=== PATIENT | male | born 1990 | race Asian ===

== ENCOUNTER 2024-12-14 03:26 | Inpatient (IN) ==
[2024-12-14] MEDS ORDERED: VANCOMYCIN CONSULT ACTIVE PRN (03:39)
[2024-12-14] MEDS: KETOROLAC TROMETHAMINE 15 MG/ML VIAL IV STA (03:57)
[2024-12-14] MEDS: SODIUM CHLORIDE 0.9% 1,000 ML IV SCH (03:57)
--- NOTE | 2024-12-14 03:57 | Emergency Department Note ---
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 Patient saw [facility] yesterday as placed on Keflex. Hand is much more swollen and painful and now he has a fever. No direct injury. Tetanus is reported as current. He states he is healthy and only takes a cholesterol pill. No other concerns per patient. No bite. Past Med/Surg History Problem List (Updated 12/14/24 @ 03:57 by Nichole Garber PA-C) Abscess of hand, right (Acute) Cellulitis of right hand (Acute) Social History Smoking Status: Never smoker Feels Safe at Home: Yes Review of Systems A total of 10 systems reviewed and were otherwise negative Physical Exam Vital Signs Vital Signs - 24 hr 12/14/24 03:29 12/14/24 04:09 12/14/24 04:13 Temperature 37.6 C H Temperature Source Temporal Artery Scan Pulse Rate 118 H Pulse Rate [Apical] 109 H Pulse Rhythm [Apical] Regular Pulse Strength [Apical] Normal Respiratory Rate 18 16 Respiratory Effort / Characteristics Non-Labored Spontaneous Non-Labored Spontaneous Respiratory Depth Normal Normal Blood Pressure 141/84 H Blood Pressure [Right Arm] Blood Pressure Mean 103 Blood Pressure Mean [Right Arm] Blood Pressure Position Sitting Pulse Oximetry 98 100 100 Oxygen Delivery Method Room Air Room Air Room Air Sepsis Recent Fever Within 48 Hours No Sepsis New/Unexplained Change in Mental Status N/A Sepsis Action Taken by Nursing No Action Required 12/14/24 04:28 Temperature Temperature Source Pulse Rate Pulse Rate [Apical] 107 H Pulse Rhythm [Apical] Regular Pulse Strength [Apical] Normal Respiratory Rate 18 Respiratory Effort / Characteristics Non-Labored Spontaneous Respiratory Depth Normal Blood Pressure Blood Pressure [Right Arm] 134/95 Blood Pressure Mean Blood Pressure Mean [Right Arm] 108 Blood Pressure Position Pulse Oximetry 99 Oxygen Delivery Method Room Air Sepsis Recent Fever Within 48 Hours Sepsis New/Unexplained Change in Mental Status Sepsis Action Taken by Nursing VITALS: Vitals are noted on the nurse's note and reviewed by myself. Vital signs stable. GENERAL: Pleasant male who appears uncomfortable, in no acute distress, nondiaphoretic, well-developed well-nourished. SKIN: Capillary reflex less than 2 seconds. HEENT: Normocephalic. PERRLA. EOMI. Nares patent. Mucous membranes moist. Neck is supple without nuchal rigidity. HEART: Regular rate and rhythm LUNGS: Clear to auscultation bilaterally without wheezes, rales or rhonchi. No retractions or accessory muscle use. ABDOMEN: Positive bowel sounds x 4. Normal tympanic percussion. Soft, nontender, without masses or organomegaly. Paz sign negative. No guarding or rebound tenderness. no CVA tenderness MUSCULOSKELETAL: No gross musculoskeletal defects. Right hand erythematous and edematous, palmar aspect between the base of the 2nd, 3rd and 4th fingers with palpable abscess, increased pain with extension of all the fingers besides the thumb. Sensation is intact. NEURO: Patient was alert and oriented to person place and time. No focal neurological deficits. Course Administered Medications Sodium Chloride (Nss) 1,000 mls @ 999 mls/hr IV .Q1H1M PRASHANTH Stop: 12/14/24 05:45 Last Admin: 12/14/24 03:57 Dose: 999 mls/hr Documented By: [facility] Discontinued Medications Ceftriaxone Sodium (Rocephin) 2,000 mg in 50 mls @ 100 mls/hr IV NOW STA Stop: 12/14/24 04:08 Last Admin: 12/14/24 03:59 Dose: 100 mls/hr Documented By: [facility] Ketorolac Tromethamine (Ketorolac Tromethamine 15 Mg/Ml Vial) 10 mg IV NOW STA Stop: 12/14/24 03:42 Last Admin: 12/14/24 03:57 Dose: 10 mg Documented By: [facility] Morphine Sulfate (Morphine Sulfate 4 Mg/Ml 1 Ml Carp\Vial) 4 mg IV NOW STA Stop: 12/14/24 04:29 Last Admin: 12/14/24 04:31 Dose: 4 mg Documented By: [facility] Admin: 12/14/24 04:30 Dose: 4 mg Documented By: [facility] Medical Decision Making Medical Records Attestation: I reviewed the patient's medical records. Home Medications Current Medication List: was personally reviewed by me Laboratory Data Attestation: I reviewed the patient's lab results. 12/14/24 03:47 12/14/24 03:47 Lab Results 12/14/24 Range/Units 03:47 WBC 12.46 H (4.8-10.8) K/ul RBC 6.76 H (4.70-6.10) M/uL Hgb 15.7 (14.0-18.0) g/dl Hct 46.9 (42.0-52.0) % MCV 69.4 L (80.0-100.0) fL MCH 23.2 L (25.0-34.0) pg MCHC 33.5 (32.0-36.0) g/dL RDW Std Deviation 33.7 L (36.4-46.3) fL RDW Coeff of Jahaira 15.0 H (11.5-14.5) % Plt Count 164 (130-400) K/uL MPV 10.8 (9.4-12.4) fL ESR 15 (0-15) mm/hr VBG pH 7.45 H (7.36-7.41) VBG pCO2 42 (38-50) mmHg VBG pO2 25 mmHg VBG HCO3 29 mmol/L VBG O2 Saturation < 60.0 % VBG Base Excess 4.7 mEq/L Sodium 136 (136-145) mmol/L Potassium 4.2 (3.5-5.1) mmol/L Chloride 101 (98-107) mmol/L Carbon Dioxide 26 (21-32) mmol/L Anion Gap 9 (3-11) BUN 7 (6-23) mg/dl Creatinine 0.93 (0.6-1.4) mg/dl Est Cr Clr Drug Dosing 102.7 ml/min eGFR 111.19 BUN/Creatinine Ratio 7.5 L (10-20) Glucose 113 H (70-99(Fasting)) mg/dl Lactate 2.0 (0.4-2.0) mmol/L Calcium 10.2 (8.6-10.3) mg/dl Magnesium 2.0 (1.7-2.4) mg/dl Total Bilirubin 0.7 (0.2-1.0) mg/dl Direct Bilirubin 0.0 (0-0.2) mg/dl AST 21 (13-39) U/L ALT 24 (7-52) U/L Alkaline Phosphatase 82 (34-104) U/L Total Creatine Kinase 80 (30-223) U/L C-Reactive Protein 2.45 H (0-0.5) mg/dl Total Protein 8.2 (6.0-8.3) gm/dl Albumin 4.8 (3.4-5.0) gm/dl Imaging Data Attestation: I personally reviewed and interpreted this imaging study as follows: Radiologist's Impression: Hand X-Ray 12/14/24 03:39 EXAM: XR hand RT min 3V routine CLINICAL HISTORY: Infection. TECHNIQUE: X-ray images of the right hand were obtained in PA, lateral, and oblique projections. COMPARISON: No prior studies available for comparison. FINDINGS: Bone Structure: Bone structure is normal and aligned. No evidence of fracture or dislocation. No osseous lesions or abnormalities identified. Joint Spaces: Joint spaces are normal. No evidence of joint effusion or subluxation. Soft Tissues: Diffuse soft tissue edema of the hand and fingers is seen. Additional Findings: No signs of osteoarthritis, bone spurs, lytic or sclerotic lesions. IMPRESSION: 1. Diffuse soft tissue swelling/edema of the right hand and fingers, likely related to infection/cellulitis. 2. No radiographic evidence of osteomyelitis or acute osseous abnormality. 3. Advise clinical correlation and further evaluation as appropriate. Disclaimer: A subtle bone abnormality or fracture may not be readily apparent on X-rays, thus clinical correlation and further imaging including follow-up CT, MRI, or follow-up X-rays are advised as needed. Electronically signed by Shaw Mathias 12-14-2024 04:29 AM MDM Narrative Prior records reviewed and summarized as above. Triage Nursing notes reviewed. Additional history obtained from friend. The patient's history was concerning for swelling and redness of the skin. Differential diagnosis: Etiologies such as cellulitis, abscess, MRSA infection, DVT, necrotizing fasciitis, dermatitis, drug eruption, as well as others were entertained.. Physical examination: As above ER treatment provided: EMERGENCY DEPARTMENT COURSE: I examined the patient. After saline and Betadine cleansing and 2 mL of 1% buffered lidocaine anesthesia, the abscess was incised with a number 11 scalpel blade. A large amount of purulent material was released with more expressed by pressure. A swab was obtained for culture. There was cleansed and dressed with bacitracin and bandage. The area was cleaned with sterile saline and dressed with bacitracin and a bandage. The patient tolerated the procedure well. The patient was discharged home in stable condition. On reassessment the patient felt better. Diagnostics interpreted by me: The labs Independently Interpreted by myself revealed leukocytosis Wound culture pending Blood cultures pending Negative lactic. Glucose 113 Imaging studies: Hand x-ray with soft tissue sore without fracture or foreign body per my independent interpretation Consultation: A consultation was placed with the hospitalist. The case was discussed and diagnostics were reviewed. The patient was evaluated in the ER for further treatment. This appears to be extensive right hand cellulitis with abscess. The abscess was gently opened up in the hand so a culture was taken. Large amount of purulent material was expressed. Patient started on broad-spectrum antibiotics. Medicine was consulted case discussed. Patient will be evaluated for admission. By the evaluation outlined above emergent etiologies such as necrotizing fasciitis, DVT, as well as others were deemed relatively unlikely. The pt informed about the findings as listed above. All questions were answered and pleased with the treatment. The chart was completed utilizing [employer] Speech voice recognition software. Grammatical errors, random word insertions, pronoun errors, and incomplete sentences are an occassional consequence of this system due to software limitations, ambient noise, and hardware issues. Any formal questions or concerns about the content, text, or information contained within the body of this dictation should be directly addressed to the physician financial legal assistant for clarification. Impression & Plan Cellulitis of right hand, Abscess of hand, right Discharge Plan Visit Data Chief Complaint: Fever Stated Complaint: PAIN AND CELLULITIS,FEVER ED Provider: [facility] Midlevel Provider: Nichole Garber Discharge Problem: Cellulitis of right hand, Abscess of hand, right Patient Disposition: Admitted As Inpatient Condition: Good Forms Stand Alone Forms: [facility] Referrals Referrals: PCP,NO [Primary Care Provider] -
[2024-12-14] MEDS: cefTRIAXone SODIUM 2,000 MG/50 ML BAG IV STA (03:59)
[2024-12-14 04:07] LABS: Hematocrit (blood only) 46.9 % (42.0-52.0); Hemoglobin 15.7 g/dl (14.0-18.0); Mean Corpuscular Hemoglobin 23.2 pg (25.0-34.0); Mean Corpuscular Volume 69.4 fL (80.0-100.0); RDW Standard Deviation 33.7 fL (36.4-46.3); Red Blood Count 6.76 M/uL (4.70-6.10); White Blood Count 12.46 K/ul (4.8-10.8)
[2024-12-14 04:08] LABS: Base Excess VBG 4.7 mEq/L; HCO3 VBG 29 mmol/L; Oxygen Saturation VBG < 60.0 %; PCO2 VBG 42 mmHg (38-50); PO2 VBG 25 mmHg; pH VBG 7.45 (7.36-7.41)
[2024-12-14 04:10] LABS: Platelet Count 164 K/uL (130-400)
--- NOTE | 2024-12-14 04:14 | History & Physical Report ---
Date of Service December 14, 2024 Assessment & Plan (1) Cellulitis of right hand: (2) Abscess of hand, right: (3) Systemic inflammatory response syndrome (SIRS): (4) Hypertriglyceridemia: Plan #right hand cellulitis/ - increased erythema/edema/skin induration of anterior r. palm (close the 3rd, 4th MCP joints) - pus drained from hand by ER doctor - Wound Cx pending, MRSA nares pending - Ceftriaxone, 2 g, IV, given in ER; Vancomycin given in ER - NSS, bolus, 2L, given in ER - consult to Ortho placed - TDaP ordered (last one in 2018; daughter of 9 months has received the 2,4,6 month DTaP vaccines) #SIRS criteria - pt meets SIRS criteria due to tachycardia (HR, 118), leukocytosis (WBC, 12.5) upon admission, possibly fever outside the hospital (patient had take Tylenol and ibuprofen before coming to the ED) - Blood Cx pending Chronic conditions #Hypertriglyceridemia - atorvastatin, 10 mg, PO, daily Code status: Full code Disposition: Med-Tele VTE Prophylaxis: self-ambulation FENGI: Heart [employer] diet, NSS, 80 mL/hr, 2 additional L History of Present Illness Chief Complaint: pain, swelling, redness of r. hand Primary Care Provider: NO PCP Patient is a 34 yo M w/ a PMHx of hypertriglyceridemia, presenting tonight w/ 9 day Hx of r. hand pain, that just started out as a red spot, but from this Tuesday the area of erythema started to spread, along w/ increased pain and swelling. Patient has felt feverish since yesterday morning, took his temp at midnight for the first time tonight and noted a temp of 101deg F. Patient had gone to [facility] two and a half days ago in the afternoon, but was only treated for the pain and instructed to take NSAIDs to control the pain. 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 Is unsure how the injury started. Patient has only taken ibuprofen, Tylenol, up until now for the pain. Allergies Allergy/AdvReac Type Severity Reaction Status Date / Time No Known Allergies Allergy Verified 12/14/24 04:58 Home Medications Medication Instructions Recorded Confirmed Type atorvastatin 10 mg tablet 10 mg PO 1XD 12/14/24 12/14/24 History Past Med/Surg History Problem List (Updated 12/14/24 @ 05:49 by Austin Loyola MD) Hypertriglyceridemia Systemic inflammatory response syndrome (SIRS) Abscess of hand, right (Acute) Cellulitis of right hand (Acute) Social History Smoking Status: Never smoker Hx Alcohol Use: Yes Hx Substance Use: No Preferred Language: Kazakh Communication Ability: Effective Medical Dosimetrist Required: No Beliefs That Will Affect Care: None Current Living Situation: Family Feels Safe at Home: Yes Assistive Devices: Glasses Review of Systems Constitutional: + fever and + chills; no sweats Respiratory: no cough and no dyspnea Cardiovascular: no palpitations and no lightheadedness Gastrointestinal: + nausea; no abdominal pain and no vomit ing Integumentary: + erythema and + skin swelling Physical Exam Constitutional: + ill appearing, cooperative and + in di stress Respiratory: normal respiratory effort, lungs clear to auscultation Cardiovascular: RRR, no murmur, no edema Extremities: normal capillary refill; no calf tenderness Gastrointestinal (Abdomen): normal bowel sounds, soft, nontender, no hepatosplenomegaly Skin: + induration and + erythema Psychiatric: A+Ox3, euthymic affect Results & Data Results & Data Vital Signs (Past 12 Hours) Vital Signs Temp Pulse Resp BP Pulse Ox O2 Del Method 12/14/24 03:29 37.6 C H 118 H 18 141/84 H 98 Room Air Supervising Physician Co-Signing Physician Notes Attending addendum: I have physically seen this patient, have supervised the medical residents activities, and agree with the H&P unless as otherwise noted. 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 He presents to the emergency department with worsening right hand swelling, redness and discomfort, initially began about 9 days ago. He presented to [facility] ED due to worsening symptoms. Right hand cellulitis/abscess- He did have drainage performed by ED personnel, and wound Gram stain and culture pending MRSA is pending Placed on vancomycin IV and ceftriaxone 2 g IV, and will continue Status post 2 L normal saline bolus from the ED Consult orthopedic surgery placed Tdap ordered Patient does meet SIRS criteria to increase heart rate and leukocytosis Acetaminophen 600 mg by mouth every 6 hours as needed for mild pain or fever Ibuprofen 40 mg p.o. every 6 hours as needed moderate pain Hypertriglyceridemia- Continue atorvastatin 10 mg daily
[2024-12-14 04:27] LABS: Alanine Aminotransferase 24.0 U/L (7-52); Alkaline Phosphatase 82.0 U/L (34-104); Anion Gap 9.0 (3-11); Bilirubin,Total 0.7 mg/dl (0.2-1.0); Blood Urea Nitrogen 7.0 mg/dl (6-23); Calcium 10.2 mg/dl (8.6-10.3); Carbon Dioxide 26.0 mmol/L (21-32); Chloride 101.0 mmol/L (98-107); Creatine Kinase 80.0 U/L (30-223); Creatinine Clr Calc Pharmacy 102.7 ml/min; Glucose 113.0 mg/dl (70-99(Fasting)); Magnesium 2.0 mg/dl (1.7-2.4); Potassium 4.2 mmol/L (3.5-5.1); Sodium 136.0 mmol/L (136-145); Total Protein 8.2 gm/dl (6.0-8.3)
--- NOTE | 2024-12-14 04:29 | XRay Report ---
EXAM: XR hand RT min 3V routine CLINICAL HISTORY: Infection. TECHNIQUE: X-ray images of the right hand were obtained in PA, lateral, and oblique projections. COMPARISON: No prior studies available for comparison. FINDINGS: Bone Structure: Bone structure is normal and aligned. No evidence of fracture or dislocation. No osseous lesions or abnormalities identified. Joint Spaces: Joint spaces are normal. No evidence of joint effusion or subluxation. Soft Tissues: Diffuse soft tissue edema of the hand and fingers is seen. Additional Findings: No signs of osteoarthritis, bone spurs, lytic or sclerotic lesions. IMPRESSION: 1. Diffuse soft tissue swelling/edema of the right hand and fingers, likely related to infection/cellulitis. 2. No radiographic evidence of osteomyelitis or acute osseous abnormality. 3. Advise clinical correlation and further evaluation as appropriate. Disclaimer: A subtle bone abnormality or fracture may not be readily apparent on X-rays, thus clinical correlation and further imaging including follow-up CT, MRI, or follow-up X-rays are advised as needed. Electronically signed by Shaw Mathias 12-14-2024 04:29 AM
[2024-12-14] MEDS: MoRPHine SULFATE 4 MG/ML 1 ML CARP\\VIAL IV STA (04:30)
[2024-12-14 04:35] LABS: Immature Granulocytes # (auto) 0.05 K/uL (0.01-0.20); Immature Granulocytes % (auto) 0.4 %; Polychromasia 1+; Stomatocytes 1+; Target Cells 1+
[2024-12-14] MEDS: ONDANSETRON INJ 2 MG/ML 2 ML VIAL IV STA (04:37)
[2024-12-14] MEDS: MoRPHine SULFATE 2 MG/ML CARP IV STA (04:45)
[2024-12-14] MEDS ORDERED: SODIUM CHLORIDE 0.9% 1,000 ML IV ONE (04:46)
[2024-12-14] MEDS: VANCOMYCIN HCL 1,250 MG in SODIUM CHLORIDE 0.9% 500 ML IV ONE (04:54)
[2024-12-14] MEDS ORDERED: ONDANSETRON INJ 2 MG/ML 2 ML VIAL IV PRN ×2 (04:54→14:14)
[2024-12-14] MEDS: DIPHTHER/TETAN/PERTUS Vaccine (Tdap, Adol/Adult) 0.5mL IM ONE (06:24)
[2024-12-14] MEDS: MoRPHine SULFATE 4 MG/ML 1 ML CARP\\VIAL IV PRN (08:03)
[2024-12-14] MEDS: ACETAMINOPHEN 500 MG TAB PO PRN (09:23)
--- NOTE | 2024-12-14 09:26 | Pharmacy Report ---
Pharmacy PK ABX Note - Date of Service December 14, 2024 - Assessment and Plan Assessment 34 year old M who presented with concerns of worsening erythema, pain and swelling of R hand. 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 Blood culture and wound culture pending. Empiric vancomycin ordered for treatment of R hand purulent cellulitis, concern for abscess. Plan Vancomycin * Loading dose: 1200 mg IV x 1 * Maintenance dose: 1250 mg IV every 12 hours * Regimen is predicted to achieve target AUC/KAREN of 400-600 mg/L.hr * est. steady state AUC/KAREN = 529 * Random level ordered for: 12/16 with AM labs Pharmacy will continue to follow and will adjust dose/frequency as necessary. Thank you. Pharmacy has transitioned to AUC monitoring for vancomycin. AUC/KAREN is the preferred PK/PD target and is associated with decreased risk of nephrotoxicity compared to traditional trough targets.
[2024-12-14] MEDS: LACTATED RINGER'S 1,000 ML IV ONE (10:13)
[2024-12-14] MEDS: ATORVASTATIN 10 MG TAB PO SCH (10:22)
[2024-12-14] MEDS: PIPERACILLIN/TAZOBACTAM 4.5 GM/100 ML BAG IV STA (10:32)
--- NOTE | 2024-12-14 10:36 | Hospitalist Progress Note ---
Date of Service December 14, 2024 Assessment & Plan (1) Cellulitis of right hand: (2) Abscess of hand, right: Plan: Purulent cellulitis, possible tenosynovitis of the right hand 9 days of progressive swelling, erythema of the right palm near the proximal aspect of the 3rd/4th digits Greatly worsening over the last 4 days, and with development of fevers chills and suspected rigors over the last 24 hours Lactate normal on admission, CRP elevated, procalcitonin negative Hand x-ray: Diffuse soft tissue swelling/edema seen. No obvious evidence of osteomyelitis Seen on morning reassessment 12/14. Has had progressive tachycardia, ongoing chills and fever, and rising sinus tachycardia to 140. No associated hypoxia or dyspnea with this Passive extension of the right 3rd/4th digits is with restricted range of motion due to pain which radiates to the wrist, although does not travel into the forearm. He has some pain on active flexion of the 3rd/4th digits, but less pain compared to on extension. Diffuse tenderness overlying swollen/erythematous area. Photo was attached in PE section. Scant amount of purulence underlying the skin is seen, serous drainage is present Small skin defect is seen, patient reports he does not recall an injury at the start of the development of this abscess however noticed that he had drainage from this area in the last day or so Due to worsening clinical appearance, and wound progressively worsening for 9- day time course will broaden antibiotics. Zosyn added for gram-negative and anaerobic coverage. Will reassess based on progression for prolonged Zosyn use and transition Vanco to Dapto versus narrowing antibiotics based on cultures over the next 24 hours Blood cultures pending, no growth to date MRSA positive with abscess CThand with contrast shows a small3 cm developing abscess. Follow-up MRI shows subcutaneous edema dorsally base of fourth extensor compartment possibly consistent with tenosynovitis. Ill-defined fluid suggestive of abscess as noted on CT. Orthopedics consulted. Anticipate irrigation debridement of the right hand abscess and middle and ring finger tendon sheaths. Appreciate care. Keep n.p.o. Follow surgical cultures when available Hypertriglyceridemia Patient on atorvastatin [employer]. Temporarily held in case daptomycin is required Will need referral to PCP when ready for discharge. Patient prefers to follow- up with [facility] primary care office. DVT prophylaxis: Held pending surgical evaluation Diet: N.p.o. CODE STATUS: Full code Admission and Anticipated Discharge Date Admission Date: December 14, 2024 Subjective Seen at the bedside. Reports 90 days ago began to have swelling and pain in his right palm. This has been progressively worsening in the last 5 days, and developed fevers and chills which brought him in in the last 2 days. He does have pain trying to extend or flex his fingers. He does not recall any injury when this started but has had some drainage from an area by his middle finger in the last day. He has had fevers and chills in the last day, and this morning. He denies lightheadedness/dizziness. Denies chest pain. Denies numbness in the hand, but strength and movement is limited by pain. Prior history of hypertriglyceridemia on atorvastatin. Denies other medical problems. Denies other allergies, denies contrast allergy. 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 Prefers not any follow-up to [facility]. Physical Exam 2 Physical Exam: General: A&Ox3. NAD. Cooperative. HEENT: Atraumatic, normocephalic. Hearing grossly intact Pulm: CTAB A&P. -wheezes, -rales, -rhonchi. Symmetrical chest rise. No increase in work of breathing. No respiratory distress. Cardiac: Tachycardic, -mrg. Radial pulses intact and symmetrical. Extremities: Right hand as pictured above. On exam passive extension of the 3rd and 4th digits produces pain radiating into the wrist, more prominent with extension of the fourth digit. Some minimal pain on active finger flexion. Cap refill in the fingertips is brisk. No pain radiating into the forearm. Radial pulse is intact. Results & Data Results & Data Vital Signs (Past 12 Hours) Vital Signs Temp Pulse Pulse Resp BP BP Pulse Ox 12/14/24 09:27 140 H 27 H 116/62 97 12/14/24 08:42 37.8 C H 12/14/24 08:04 140 H 16 113/72 97 12/14/24 07:42 133 H 12/14/24 06:21 135 H 18 129/76 100 12/14/24 06:21 135 H 16 99 12/14/24 04:28 107 H 18 134/95 99 12/14/24 04:13 109 H 16 100 08/29/25 04:09 100 12/14/24 03:52 109 H 12/14/24 03:29 37.6 C H 118 H 18 141/84 H 98 O2 Del Method 12/14/24 09:27 Room Air 12/14/24 08:42 12/14/24 08:04 Room Air 12/14/24 07:42 12/14/24 06:21 Room Air 12/14/24 06:21 Room Air 12/14/24 04:28 Room Air 12/14/24 04:13 Room Air 12/14/24 04:09 Room Air 12/14/24 03:52 12/14/24 03:29 Room Air PG Care Time/CCT Total # of Minutes Spent Total Time Spent with Patient: Total time spent is greater than 50% in coordination of care (as documented) at patient's floor/unit and/or counseling patient: Coding Level of Care Code 21683 SUB INP/OBS CARE 3/50MIN Diagnoses Cellulitis of right hand L03.113 Abscess of hand, right L02.511
--- NOTE | 2024-12-14 11:11 | Orthopedic Consultation ---
Date of Consultation December 14, 2024 Assessment & Plan (1) Abscess of hand, right: (2) Cellulitis of right hand: (3) Systemic inflammatory response syndrome (SIRS): (4) Hypertriglyceridemia: Plan 34-year-old gentleman presents to the emergency department last evening for a ri ght hand infection. Patient has been dealing with this for the last 9 or 10 days. He has significant pain and swelling and erythema located near the middle and ring digits of his right hand. On my evaluation this morning, the patient notes that he did have a drainage done in the evening with return of purulent material. On my evaluation of the patient's imaging studies, the CT scan does show concern of an abscess that is centered over the middle digit that extends ulnarly near the fourth digit as well. The concern for me at this point is whether or not this infection has spread into the flexor tendon sheaths. Clinically, the patient does have swelling in this area but his digits are not with fusiform swelling. He has tenderness over his proximal phalanx and flexor tendons on both digits, however he does not have tenderness over the entire flexor sheath. We did discuss this with my hand surgery colleague who noted that an MRI would be quite helpful into finding the location of the abscess. The concern is whether or not this extends dorsally. On the CT scan evaluation I do not appreciate this, however an MRI of the hand done stat should be able to help delineate this as well. As of now, I do believe the patient requires irrigation and debridement this will be of the palmar superficial abscess and out of an abundance of caution and considering it has been a week and a half since this first developed, I do think that irrigation and debridement of the flexor tendon sheaths is also appropriate.. I do long discussion with patient regarding the nature of this condition. Discussed in great detail the pathoanatomy, pathophysiology and treatment options. I did discuss with him that the alternative to surgery would be for IV antibiotics and close observation, however my recommendation is for irrigation and debridement surgically in order to ensure the best chance source control. I discussed with the patient the risks of surgery which include but are not limited to loss of life/limb, DVT, incomplete relief of pain, need for additional surgery, continued infection, iatrogenic injury to bone/nerve/tendon/vessel, need for skin grafting in the future, finger stiff ness. I expressed to him the alternative of close observation with IV antibiotics carries with it a higher risk of inadequate source control requiring surgery in the future. After thorough discussion the risk, benefits and alternatives to surgical management, we will plan for irrigation and debridement of right hand abscess and middle and ring flexor tendon sheaths. Please keep the patient NPO. Will proceed to the operating room pending or availability. We will obtain cultures in the operating room to help guide antibiotic treatment, however I did explain to the patient that these cultures may be incomplete or grow nothing considering he has already been on IV antibiotics. Surgical plan: Irrigation debridement right hand abscess and middle and ring flexor tendon sheaths. History of Present Illness Reason for Consultation: right hand cellulitis Requesting Physician: Dr Bright and Dr Styles Attending Physician: Minh Bright MD History of Present Illness Patient is a 34 yo M w/ a PMHx of hypertriglyceridemia, who presented last evening with a 9 day history of right hand pain. He notes that the pain started out as a red spot, but this past Tuesday, the area of erythema started to spread and at that time he also noted increased pain and swelling. Patient has felt feverish since yesterday morning, took his temp at midnight last night for the first time and noted a temp of 101 F. Patient had reportedly presented to [facility] two ago, and notes that he was told to take some antiinflammatories for the issue. Patient works in a [employer] and had not done anything he knows to cause trauma to the hand. Is unsure how the injury started. Patient has been treating the pain with tylenol and NSAIDs. He was admitted to the hospitalist service last evening and when he was seen this moring, was noted to have progressive tachycardia, ongoing chills and fever, and rising tachycardia to 140. Per the hospitalist, passive extension of the right 3rd/4th digits is with restricted range of motion due to pain. At that time the hospitalist contacted [facility] service who noted that they should call the operations/dispatch surgeon. On my evaluation in the ER, the patients antibiotic coverage has been expanded. Allergies Allergy/AdvReac Type Severity Reaction Status Date / Time No Known Allergies Allergy Verified 12/14/24 04:58 Home Medications Medication Instructions Recorded Confirmed Type atorvastatin 10 mg tablet 10 mg PO 1XD 12/14/24 12/14/24 History Patient History Social History Smoking Status: Never smoker Feels Safe at Home: Yes Review of Systems Review of Systems: All systems reviewed & are unremarkable except as noted in HPI & below Physical Exam Physical Exam: On physical examination, the patient has some erythema noted about his palmar hand centered around the 3rd and 4th digits. This does appear to be centered at the level of the MP joints. He has tenderness to palpation in this area. There is some mild serous drainage from what appears to be a prior stab incision for ER drainage of this cyst. Diffusely, his hand is somewhat swollen with some swelling noted dorsally. There is no area of purulence noted dorsally and no significant erythema there either. With passive extension of the patient's digits he has pain in the middle and ring digits. No pain with passive extension of the index, small, or thumb. He has mild swelling of the 3rd and 4th digits noted but this is not fusiform of the entire digit. His hand rests in a slightly flexed posture. He is tender over the area of concern, but he is nontender over the flexor tendons within the rest of his finger. Results & Data Vital Signs (Past 12 Hours) Vital Signs Temp Pulse Pulse Resp BP BP Pulse Ox 12/14/24 09:27 140 H 27 H 116/62 97 12/14/24 08:42 37.8 C H 12/14/24 08:04 140 H 16 113/72 97 12/14/24 07:42 133 H 12/14/24 06:21 135 H 18 129/76 100 12/14/24 06:21 135 H 16 99 12/14/24 04:28 107 H 18 134/95 99 12/14/24 04:13 109 H 16 100 12/14/24 04:09 100 12/14/24 03:52 109 H 12/14/24 03:29 37.6 C H 118 H 18 141/84 H 98 O2 Del Method 12/14/24 09:27 Room Air 12/14/24 08:42 12/14/24 08:04 Room Air 12/14/24 07:42 12/14/24 06:21 Room Air 12/14/24 06:21 Room Air 12/14/24 04:28 Room Air 12/14/24 04:13 Room Air 12/14/24 04:09 Room Air 12/14/24 03:52 12/14/24 03:29 Room Air Diagnostic Findings XRs and CT of the hand personally reviewed and interpreted. These demonstrate no acute osseous abnormalities. In the palmar hand, there does appear to be a small abscess located in the space between the middle and ring digits just distal to the MP joint.
[2024-12-14] MEDS: OPTIRAY 320 100ml IV ONE (11:18)
--- NOTE | 2024-12-14 12:06 | CT Scan Report ---
CT hand RT w con HISTORY: 34 years-old Male R hand infection, initial eval for osteo/tenosyno acute pain and swelling of the right hand COMPARISON: Radiographs of same day TECHNIQUE: Multiple axial CT images of the right hand were obtained with IV contrast. A dose lowering technique was used consistent with the principals of SHERRON. FINDINGS: Ill-defined peripherally enhancing 3.1 x 0.9 x 1.4 collection noted within the palmar tissues of the hand at the level of the bases of the proximal phalanges involving the second through fourth digits. No definite tenosynovitis or foreign body. Plantar and volar subcutaneous edema is mild to moderate. No acute fracture, dislocation or osseous erosion. Tendons and ligaments are suboptimally evaluated b y CT technique. IMPRESSION: 1. No acute osseous abnormality. 2. Suggested cellulitis with developing 3 cm abscess. ACT 112: Negative or not required by law. The above report was generated using voice recognition software. It may contain grammatical, syntax o r spelling errors. Electronically signed by: Yinka Phillips M.D. 12/14/2024 12:04 PM
[2024-12-14] MEDS: VANCOMYCIN HCL 1,250 MG in SODIUM CHLORIDE 0.9% 250 ML IV SCH (12:20)
--- NOTE | 2024-12-14 12:51 | Anesthesiology Consultation ---
Date of Service December 14, 2024 Assessment & Plan Chart Review Chart Review: Acceptable Risk for Surgery and Patient NOT seen in Pre Admission Testing Consults Requested none History Surgery Operation Date: 12/14/24 08:40 Proposed Procedures p Incision and Drainage Right Hand - Juan Ochoa DO Height/Weight Height: 5 ft 7 in Weight: 64.3 kg Allergies Allergy/AdvReac Type Severity Reaction Status Date / Time No Known Allergies Allergy Verified 12/14/24 04:58 Medications Home Medications Medication Instructions Recorded Confirmed Last Taken atorvastatin 10 mg tablet 10 mg PO 1XD 12/14/24 12/14/24 Unknown Active Medications Generic Name Dose Route Start Last Admin Trade Name Freq PRN Reason Stop Dose Admin Acetaminophen 1,000 mg 12/14/24 04:54 12/14/24 09:23 Acetaminophen 500 Mg Tab PO 01/13/25 04:53 1,000 mg Q8H PRN Administration Pain or Fever Atorvastatin Calcium 10 mg 12/14/24 09:00 12/14/24 10:22 Atorvastatin 10 Mg Tab PO 01/13/25 08:59 Not Given DAILY PRASHANTH Vancomycin HCl 1,250 mg/ 275 mls @ 200 mls/hr 12/14/24 12:00 12/14/24 12:20 Sodium Chloride IV 12/21/24 11:59 200 mls/hr Q12H PRASHANTH Administration Morphine Sulfate 4 mg 12/14/24 04:54 12/14/24 08:03 Morphine Sulfate 4 Mg/Ml 1 Ml Carp\Vial IV 12/28/24 04:53 4 mg Q3H PRN Administration Severe Pain (Scale 7, 8, 9,10) Social History Smoking Status: Never smoker Physical Exam Vital Signs Last Vital Signs Temp 37.6 C H 12/14/24 11:38 Pulse 99 H 12/14/24 12:38 Resp 20 12/14/24 12:38 BP 110/67 12/14/24 12:38 Pulse Ox 98 12/14/24 12:38 O2 Del Method Room Air 12/14/24 09:27 Testing Laboratory Results 12/14/24 03:47 12/14/24 03:47 12/14/24 03:47 Gram Stain - Final Hand
[2024-12-14] MEDS ORDERED: LIDOCAINE 2% 2 ML VIAL/AMP(20MG/ML) INFIL ONE ×2 (13:01)
[2024-12-14] MEDS ORDERED: MIDAZOLAM HCL 1 MG/ML 2ML VIAL ONE (13:01)
[2024-12-14] MEDS ORDERED: PROPOFOL IV EMULSION 10 MG/ML 20 ML VIAL IV ONE (13:01)
--- NOTE | 2024-12-14 13:51 | History & Physical Bridge Note ---
Date of Service December 14, 2024 History & Physical Bridge Note I have examined the patient, reviewed the History & Physical and in the interval since the performance of the History & Physical I have noted the following changes of clinical significance: MRI personally reviewed, demonstrates palmar abscess without extension dorsally. there is dosal soft tissue cellulitis I had a long discussion with patient regarding the nature of this condition. Discussed in great detail the pathoanatomy, pathophysiology and treatment options. I did discuss with him that the alternative to surgery would be for IV antibiotics and close observation, however my recommendation is for irrigation and debridement surgically in order to ensure the best chance source control. I discussed with the patient the risks of surgery which include but are not limited to loss of life/limb, DVT, incomplete relief of pain, need for additional surgery, continued infection, iatrogenic injury to bone/nerve/tendon/vessel, need for skin grafting in the future, finger stiffness. I expressed to him the alternative of close observation with IV antibiotics carries with it a higher risk of inadequate source control requiring surgery in the future. After thorough discussion the risk, benefits and alternatives to surgical management, we will plan for irrigation and debridement of right hand abscess and middle and ring flexor tendon sheaths. Surgical plan remains the same following MRI: Irrigation and debridement of right hand abscess and middle and ring finger flexor tendon sheaths with all other indicated procedures.
[2024-12-14] MEDS ORDERED: ROCURONIUM BROMIDE 10 MG/ML 5 ML VIAL IV ONE (14:05)
[2024-12-14] MEDS ORDERED: SUCCINYLCHOLINE CHLORIDE 20 MG/ML 10 ML VIAL IV ONE (14:06)
[2024-12-14] MEDS ORDERED: ATROPINE SULFATE 0.1 MG/ML 10ML SYR IV PRN (14:14)
[2024-12-14] MEDS ORDERED: ARTIFICIAL TEARS OP OINT 3.5 GM TUBE ONE (14:17)
--- NOTE | 2024-12-14 14:26 | Magnetic Resonance Report ---
MR hand RT wo con HISTORY: 34 years-old Male hand infection acute pain and swelling COMPARISON: CT right hand of same day TECHNIQUE: Multiplanar multisequence MRI of the right hand was obtained without IV contrast. FINDINGS: Previously described ill-defined peripherally enhancing 3.1 x 0.9 x 1.4 collection within the palmar tissues of the hand at the level of the bases of the proximal phalanges involving the second through fourth digits is again noted. Palmar and volar subcutaneous edema redemonstrated which is moderate do rsally and also moderate the pulmonary tissues surrounding the aforementioned ill-defined collection. Fluid extends around the fourth extensor compartment tendons. No definite flexor tenosynovitis. No a cute tendon or ligamentous tear identified. No acute fracture, significant marrow edema, dislocation or osseous erosion. Tendons and ligaments ar e suboptimally evaluated by CT technique. IMPRESSION: 1. No acute osseous abnormality, specifically no bony erosions or marrow edema. 2. Subcutaneous edema is most pronounced dorsally facing the fourth extensor compartment tendons whic h may represent an associated tenosynovitis. 3. Ill-defined fluid along the palmar hand is better evaluated on the contrast-enhanced CT study of suggestive of phlegmon/developing abscess. ACT 112: Negative or not required by law. The above report was generated using voice recognition software. It may contain grammatical, syntax o r spelling errors. Electronically signed by: Yinka Phillips M.D. 12/14/2024 2:25 PM
[2024-12-14] MEDS ORDERED: ONDANSETRON INJ 2 MG/ML 2 ML VIAL ONE (14:31)
[2024-12-14] MEDS ORDERED: DEXAMETHASONE SOD INJ 4 MG/ML VIAL ONE (14:31)
[2024-12-14] MEDS ORDERED: KETAMINE HCL 10MG/ML SYR ONE (14:37)
[2024-12-14] MEDS ORDERED: HYDROmorphone INJ 1 MG/ML SYRINGE ONE (14:39)
[2024-12-14] MEDS: VANCOMYCIN HCL 1000MG/20ML VIAL ONE (14:53)
[2024-12-14] MEDS ORDERED: SUGAMMADEX SODIUM 200 MG/2 ML VIAL IV ONE (14:55)
[2024-12-14] MEDS ORDERED: PHENYLEPHRINE 100MCG/ML 5ML SYR ONE (14:56)
[2024-12-14] MEDS ORDERED: KETOROLAC 30 MG/ML VIAL ONE (15:02)
--- NOTE | 2024-12-14 15:36 | Operative Report ---
Post Operative Report Pre & Post Diagnosis Operation Date: 12/14/24 08:40 <No data on this case meets the specified criteria> Preoperative diagnoses: 1. Right hand abscess 2. Evolving flexor tenosynovitis right middle digit 3. Evolving flexor tenosynovitis right ring digit Postoperative diagnosis: 1. Right hand abscess 2. Evolving flexor tenosynovitis right middle digit 3. Evolving flexor tenosynovitis right ring digit I identified the patient and participated in the time-out.: Yes Procedure Operation Date: 12/14/24 08:40 <No data on this case meets the specified criteria> 1. Irrigation and debridement right hand abscess 2. Irrigation and debridement right middle finger flexor tenosynovitis 3. Irrigation debridement right ring finger flexor tenosynovitis Surgeon Juan Ochoa, DO Doper Operator none Estimated Blood Loss 10 Findings Consistent with Post-Op Diagnosis Specimens 1 swab for culture of abscess Complications none immediately apparent Indications 34-year-old gentleman presents to the emergency department last evening for a right hand infection. Patient has been dealing with this for the last 9 or 10 days. He has significant pain and swelling and erythema located near the middle and ring digits of his right hand. On my evaluation this morning, the patient notes that he did have a drainage done in the evening with return of purulent material. On my evaluation of the patient's imaging studies, the CT scan does show concern of an abscess that is centered over the middle digit that extends ulnarly near the fourth digit as well. The concern for me at this point is whether or not this infection has spread into the flexor tendon sheaths. Clinically, the patient does have swelling in this area but his digits are not with fusiform swelling. He has tenderness over his proximal phalanx and flexor tendons on both digits, however he does not have tenderness over the entire flexor sheath. We did discuss this with my hand surgery colleague who noted that an MRI would be quite helpful into finding the location of the abscess. The concern is whether or not this extends dorsally. On the CT scan evaluation I do not appreciate this, however an MRI of the hand done stat should be able to help delineate this as well. As of now, I do believe the patient requires irrigation and debridement this will be of the palmar superficial abscess and out of an abundance of caution and considering it has been a week and a half since this first developed, I do think that irrigation and debridement of the flexor tendon sheaths is also appropriate.. I do long discussion with patient regarding the nature of this condition. Discussed in great detail the pathoanatomy, pathophysiology and treatment options. I did discuss with him that the alternative to surgery would be for IV antibiotics and close observation, however my recommendation is for irrigation and debridement surgically in order to ensure the best chance source control. I discussed with the patient the risks of surgery which include but are not limited to loss of life/limb, DVT, incomplete relief of pain, need for additional surgery, continued infection, iatrogenic injury to bone/nerve/tendon/vessel, need for skin grafting in the future, finger stiffness. I expressed to him the alternative of close observation with IV an tibiotics carries with it a higher risk of inadequate source control requiring surgery in the future. After thorough discussion the risk, benefits and alternatives to surgical management, we will plan for irrigation and debridement of right hand abscess and middle and ring flexor tendon sheaths. Please keep the patient NPO. Will proceed to the operating room pending or availability. We will obtain cultures in the operating room to help guide antibiotic treatment, however I did explain to the patient that these cultures may be incomplete or grow nothing considering he has already been on IV antibiotics. Surgical plan: Irrigation debridement right hand abscess and middle and ring flexor tendon sheaths. patient did have his MRI prior to surgery which demonstrated dorsal soft tissue cellulitis without discrete abscess. Noted was the abscess in the palmar soft tissues. Description of Procedure After informed consent was obtained, the patient was correctly identified in the preoperative holding suite, the operative site was marked with the surgeon's initials, the date of surgery, and the word yes. The patient was then taken to the operative suite. The department of anesthesia administered General Anesthetic. The patient was transferred from the [facility] to the operative table. All bony prominences were well-padded. Briefing and timeout was performed. All implants were available and sterile at the time. BRIEFING AND DEBRIEFING: Pre and post operative briefing and debriefing was performed. Introductions were made, goals of the procedure were discussed, questions and concerns were addressed. The operative site markings were identified and appropriate. A time [id number] was performed, the patient's correct identity was confirmed and the correct operative sites were identified. The patients pre-operative antibiotic dosing and administration was confirmed along with other SCIP measures. The team was polled at the completion of the surgery and all team members were in agreement that the procedure was without complication, the counts are correct, the wound class was identified and suggestions for improvement were shared. patient was transferred in supine fashion from the hospital bed to the operative table. All bony prominences well-padded. A well-padded tourniquet was placed high on the right arm and SCDs were placed on bilateral lower extremities. Left upper extremity was placed on a well-padded arm board. We prepped and draped the patient's right upper extremity using Betadine scrub and paint. The tourniquet was inflated without exsanguination and we began the surgical procedure. We started with longitudinal incisions over the middle finger and ring finger A1 pulleys. The planned incision for the irrigation debridement of the flexor tendon sheath was directly over the center of the abscess and through the middle finger incision we first encountered the large abscess. Cultures were then taken and sent to the lab. At this point, we explored using hemostats underneath the skin bridge in order to express all aspects of the abscess. We then began sharp debridement of nonviable tissue within the abscess using tenotomy scissors. This was done down to the level of the tendon sheath. Once you are satisfied with our debridement, we began thorough irrigation using 3 L of sterile saline mixed with vancomycin powder via cystoscopy tubing. We would save 200 cc of this 3 L bag to use for the flexor tendon sheaths. Next, we turned our attention towards the middle and ring finger flexor tendon sheaths. Given the proximity to the A1 philip of the abscess for both digits, we felt it was necessary to proceed with irrigation debridement of the sheath for suspected evolving flexor tenosynovitis. we started with the middle finger. Prior to irrigating through our previously made incisions we would make a counterincision distally using a mini Marcela type incision over the A5 philip at the flexion crease of the DIP joint. We dissected bluntly down to the level of the philip and made a small suraj within the philip to allow for egress of fluid. We then turned our attention back proximally. We would retract the soft tissues including the neurovascular bundles out of the way of the A1 philip And once we fully saw the philip we would introduce a 14-gauge Angiocath into the flexor sheath. Through this Angiocath we would irrigate with 100 cc of sterile saline through the flexor sheath watching the egress of fluid distally. Next, we turned our attention towards the ring finger. We would again turned our attention distally make a small Marcela incision over the A5 philip at the flexion crease of the DIP joint. We dissected bluntly down to the level of the philip, made a small suraj in it in order to allow egress of fluid. We turned our attention back proximally and after retracting soft tissues out of the way we would incise the A1 philip longitudinally. We introduced the 14-gauge Angiocath into the flexor tendon sheath and through this we irrigated with 100 cc of sterile saline watching egress of the fluid distally. At this point, we inspected the patient's hand and the infection had been appropriately decompressed. We then began closure using 4-0 nylon sutures in a horizontal mattress fashion. We would place quarter inch brown Steri-Strips between each suture and all 4 incisions and cover the wounds with Betadine soaked Adaptic, 4 x 4's fluffed, sterile Jerry, sterile Webril and an Pradeep wrap. The patient was placed into a large bulky soft dressing. The patient tolerated this procedure well and was transferred to the PACU in stable condition. Prior to transportation to PACU, all counts were correct and a briefing was performed at the end of the case. I was present for the entire procedure. Plan: Weight bearing status: Nonweightbearing right hand Wound care: keep dressings clean and dry. Will plan for wound assessment on Tuesday morning Range of motion: hand to be immobilized until first dressing change. VTE Prophylaxis: Ambulate ad yas. Antibiotics: broad-spectrum for now will tailor pending culture results. Pain Control: Multimodal Discharge Plan: patient admitted to the floor under the medical Follow Up: I will continue follow patient while he is admitted and determine appropriate follow-up plans pending clinical course. I attest to the content of the Intraoperative Record and any orders documented therein. Any exceptions are noted below.
--- NOTE | 2024-12-14 16:32 | Anesthesiology Progress Note ---
Date of Service December 14, 2024 Anesthesia Post Procedure Vital Signs Vital Signs: Temp Pulse Pulse Resp BP BP Pulse Ox 12/14/24 16:25 36.7 C 94 H 18 123/80 98 12/14/24 16:15 98 H 19 121/75 96 12/14/24 16:05 89 17 102/68 98 12/14/24 15:55 95 H 17 115/73 98 12/14/24 15:45 99 H 17 119/79 98 12/14/24 15:37 36 C L 105 H 18 113/77 96 12/14/24 13:57 37.7 C H 113 H 20 109/76 99 12/14/24 12:38 99 H 20 110/67 98 12/14/24 11:38 37.6 C H 121 H 28 H 107/67 96 12/14/24 09:27 140 H 27 H 116/62 97 12/14/24 08:42 37.8 C H 12/14/24 08:04 140 H 16 113/72 97 12/14/24 07:42 133 H 12/14/24 06:21 135 H 18 129/76 100 12/14/24 06:21 135 H 16 99 12/14/24 04:28 107 H 18 134/95 99 12/14/24 04:13 109 H 16 100 12/14/24 04:09 100 12/14/24 03:52 109 H 12/14/24 03:29 37.6 C H 118 H 18 141/84 H 98 O2 Del Method O2 Flow Rate 12/14/24 16:25 Nasal Cannula 2 12/14/24 16:15 Oxymask 4 12/14/24 16:05 Oxymask 4 12/14/24 15:55 Oxymask 8 12/14/24 15:45 Oxymask 8 12/14/24 15:37 Oxymask 8 12/14/24 13:57 Room Air 12/14/24 12:38 12/14/24 11:38 12/14/24 09:27 Room Air 12/14/24 08:42 12/14/24 08:04 Room Air 12/14/24 07:42 12/14/24 06:21 Room Air 12/14/24 06:21 Room Air 12/14/24 04:28 Room Air 12/14/24 04:13 Room Air 12/14/24 04:09 Room Air 12/14/24 03:52 12/14/24 03:29 Room Air Pain Intensity Right Hand: Pain Intensity: 8 Transfer of Care Handoff Completed per policy Notes Mental Status: alert / awake / arousable Patient Amnestic to Procedure: Yes Nausea / Vomiting: adequately controlled Pain: adequately controlled Airway Patency, RR, SpO2: stable & adequate BP & HR: stable & adequate Hydration State: stable & adequate Anesthetic Complications: no major complications apparent
[2024-12-14] MEDS: PIPERACILLIN/TAZOBACTAM 4.5 GM/100 ML BAG IV SCH (17:44)
--- NOTE | 2024-12-14 19:10 | Billing Data ---
Date of Service December 14, 2024 Coding Level of Care Code 76754 INT INP/OBS CARE
[2024-12-14 19:23] LABS: A calco-baum cmplx NotReported Not Detected (NotDetected); Bact fragilis Not Reported Not Detected (NotDetected); Blood Culture Id Panel See PCR Comment (NotDetected); C auris Not Reported Not Detected (NotDetected); Calbicans Not Reported Not Detected (NotDetected); Candida glabrata Not Reported Not Detected (NotDetected); Candida krusei Not Reported Not Detected (NotDetected); Cneoformans/gatti Not Reported Not Detected (NotDetected); Cparapsilosis Not Reported Not Detected (NotDetected); Ctropicalis Not Reported Not Detected (NotDetected); E cloacae compx Not Reported Not Detected (NotDetected); Efaecalis Not Reported Not Detected (NotDetected); Efaecium Not Reported Not Detected (NotDetected); Enterobacterales Not Reported Not Detected (NotDetected); Escherichia coli Not Reported Not Detected (NotDetected); H influenzae Not Reported Not Detected (NotDetected); K aerogenes Not Reported Not Detected (NotDetected); Koxytoca Not Reported Not Detected (NotDetected); Kpneumoniae grp Not Reported Not Detected (NotDetected); Lmonocyt Not Reported Not Detected (NotDetected); N meningitidis Not Reported Not Detected (NotDetected); P aeruginosa Not Reported Not Detected (NotDetected); Proteus spp Not Reported Not Detected (NotDetected); Salmonella spp Not Reported Not Detected (NotDetected); Staph lugdunensis Not Reported Not Detected (NotDetected); Staph spp. Not Reported DETECTED (NotDetected); Staphaureus Not Reported DETECTED (NotDetected); Staphepi Not Reported Not Detected (NotDetected); Staphylococcus spp. DETECTED (NotDetected); Stenmaltophilia Not Reported Not Detected (NotDetected); Strep agal(GrpB) Not Reported Not Detected (NotDetected); Strep pneum Not Reported Not Detected (NotDetected); Strep pyog (GrpA) Not Reported Not Detected (NotDetected); Strep spp Not Reported Not Detected (NotDetected)
[2024-12-14] MEDS: LACTATED RINGER'S 1,000 ML IV SCH (19:27)
[2024-12-14 19:34] LABS: mecAC+MREJ Resistant Gene MRSA DETECTED (NotDetected)
--- NOTE | 2024-12-15 08:01 | Hospitalist Progress Note ---
Date of Service December 15, 2024 Assessment & Plan (1) Cellulitis of right hand: (2) Abscess of hand, right: (3) Systemic inflammatory response syndrome (SIRS): (4) Hypertriglyceridemia: Plan MRSA bacteremia PCR positive for MRSA Suspect from right hand source, s/p surgical source control Continue vancomycin Surveillance cultures ordered TTE initial screen ordered ID consulted Right hand purulent tenosynovitis/cellulitis Blood cultures positive, PCR positive for MRSA Due to initial exam antibiotics were expanded, advanced imaging was obtained, and patient subsequently taken for surgical management of developing tenosynovitis S/p I&D of right hand abscess, right middle finger flexor tenosynovitis, right ring finger flexor tenosynovitis Continue vancomycin MRSA bacteremia managed as above Wound cultures are pending. Initial surface culture with gram-positive Gram stain. No evidence of gram-negative infection at this time. Will discontinue Zosyn and follow clinically. If he clinically deteriorates or cultures come back for Gram negative organisms and can Riyad coverage at that time ID consulted for MRSA bacteremia Sinus tachycardia improved. 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 Held temporarily allow for daptomycin transition if needed for daily infusions/outpatient treatment DVT prophylaxis: Lovenox Diet: Regular CODE STATUS: Full code Admission and Anticipated Discharge Date Admission Date: December 14, 2024 Subjective Seen at the bedside. He reports he feels much better post surgical i ntervention. Minimal to no pain at time of assessment. He denies feeling in his fingertips and no numbness/tingling. He reports the fevers and chills have not recurred since yesterday. Denies chest pain chest pressure or shortness of breath. Reviewed MRSA bacteremia likely as a result of his abscess and further workup including echocardiography, serial blood cultures, and ID consultation. No further questions at time of bedside visit Physical Exam Physical Exam: General: A&Ox3. NAD. Cooperative. HEENT: Atraumatic, normocephalic. Hearing grossly intact. Vision grossly intact. Pulm: CTAB A&P. -wheezes, -rales, -rhonchi. Symmetrical chest rise. No increase in work of breathing. No respiratory distress. Cardiac: Regular rate and rhythm, -mrg. Radial pulses intact and symmetrical. Extremities: Right hand in postop dressing. Cap refill in fingertips is brisk, no numbness/tingling. Results & Data Results & Data Vital Signs (Past 12 Hours) Vital Signs Temp Pulse Pulse Resp BP BP Pulse Ox 12/15/24 07:35 88 12/15/24 04:30 36.8 C 103 H 18 120/74 96 12/14/24 23:25 36.8 C 91 H 18 109/60 95 12/14/24 21:46 99 H O2 Del Method 12/15/24 07:35 12/15/24 04:30 Room Air 12/14/24 23:25 Room Air 12/14/24 21:46 PG Care Time/CCT Total # of Minutes Spent Total Time Spent with Patient: Total time spent is greater than 50% in coordination of care (as documented) at patient's floor/unit and/or counseling patient: Coding Level of Care Code 14925 SUB INP/OBS CARE 3/50MIN Diagnoses Cellulitis of right hand L03.113 Abscess of hand, right L02.511 Systemic inflammatory response syndrome (SIRS) R65.10 Hypertriglyceridemia E78.1
--- NOTE | 2024-12-15 08:04 | Orthopedic Progress Note ---
Date of Service December 15, 2024 Assessment & Plan (1) Abscess of hand, right: (2) Cellulitis of right hand: (3) Systemic inflammatory response syndrome (SIRS): (4) Hypertriglyceridemia: Plan 34-year-old gentleman Postoperative day #1 status post irrigation debridement right hand abscess and irrigation debridement middle finger and ring finger flexor tendon sheaths. Overall, patient is doing well. I have ordered repeat ESR and CRP in order to trend these as we move forward. I did explain to the patient that the cultures from the OR still not growing anything in this is not unexpected considering he did receive IV antibiotics prior to surgical management. Would recommend infectious disease consultation to tailor appropriate outpatient antibiotics. I will plan to change the patient's dressings tomorrow. Activity ad yas. Nonweightbearing right hand. Admission and Anticipated Discharge Date Admission Date: December 14, 2024 Subjective Postoperative day #1 status post irrigation debridement right hand. Patient notes his hand feels today noted that yesterday. Denies any issues overnight. Review of Systems Review of Systems: All systems reviewed & are unremarkable except as noted in HPI & below Physical Exam Physical Exam: Dressings clean dry and intact. Sensation intact to light touch in the digits. Results & Data Vital Signs (Past 12 Hours) Vital Signs Temp Pulse Pulse Resp BP BP Pulse Ox 12/15/24 04:30 36.8 C 103 H 18 120/74 96 12/14/24 23:25 36.8 C 91 H 18 109/60 95 12/14/24 21:46 99 H O2 Del Method 12/15/24 04:30 Room Air 12/14/24 23:25 Room Air 12/14/24 21:46 Laboratory Results OR culture still pending. Early abscess cultures showing gram-positive cocci in clusters.
[2024-12-15 09:11] LABS: Hematocrit (blood only) 41.9 % (42.0-52.0); Hemoglobin 13.9 g/dl (14.0-18.0); Mean Corpuscular Hemoglobin 23.4 pg (25.0-34.0); Mean Corpuscular Volume 70.4 fL (80.0-100.0); Platelet Count 192 K/uL (130-400); RDW Standard Deviation 34.5 fL (36.4-46.3); Red Blood Count 5.95 M/uL (4.70-6.10); White Blood Count 15.59 K/ul (4.8-10.8)
[2024-12-15 09:28] LABS: Anion Gap 7.0 (3-11); Blood Urea Nitrogen 8.0 mg/dl (6-23); Calcium 9.0 mg/dl (8.6-10.3); Carbon Dioxide 26.0 mmol/L (21-32); Chloride 106.0 mmol/L (98-107); Creatinine Clr Calc Pharmacy 120.7 ml/min; Potassium 3.8 mmol/L (3.5-5.1); Sodium 139.0 mmol/L (136-145)
--- NOTE | 2024-12-15 10:55 | XCELERA ---
[id number]
[2024-12-15] MEDS: VANCOMYCIN HCL 1,500 MG in SODIUM CHLORIDE 0.9% 500 ML IV SCH (11:26)
[2024-12-15] MEDS: DOCUSATE SODIUM 100 MG CAP PO PRN (22:39)
[2024-12-16] MEDS: MELATONIN 3 MG TAB PO PRN (00:43)
[2024-12-16 06:22] LABS: Hematocrit (blood only) 41.0 % (42.0-52.0); Hemoglobin 13.7 g/dl (14.0-18.0); Immature Granulocytes # (auto) 0.04 K/uL (0.01-0.20); Immature Granulocytes % (auto) 0.4 %; Mean Corpuscular Hemoglobin 23.7 pg (25.0-34.0); Mean Corpuscular Volume 70.9 fL (80.0-100.0); Platelet Count 173 K/uL (130-400); RDW Standard Deviation 35.2 fL (36.4-46.3); Red Blood Count 5.78 M/uL (4.70-6.10); White Blood Count 9.24 K/ul (4.8-10.8)
[2024-12-16 06:38] LABS: Anion Gap 5.0 (3-11); Blood Urea Nitrogen 12.0 mg/dl (6-23); Calcium 8.8 mg/dl (8.6-10.3); Carbon Dioxide 28.0 mmol/L (21-32); Chloride 108.0 mmol/L (98-107); Creatinine Clr Calc Pharmacy 117.8 ml/min; Glucose 110.0 mg/dl (70-99(Fasting)); Potassium 4.0 mmol/L (3.5-5.1); Sodium 141.0 mmol/L (136-145)
--- NOTE | 2024-12-16 08:28 | Orthopedic Progress Note ---
Date of Service December 16, 2024 Assessment & Plan (1) Abscess of hand, right: (2) Cellulitis of right hand: (3) Systemic inflammatory response syndrome (SIRS): Plan Postoperative day 2 status post irrigation debridement right hand. CRP yesterday showed increase from admission which is somewhat confusing considering his hand was examined today and demonstrates no erythema or signs of infection. His hand appears markedly improved. The medical team has ordered a consult to infectious disease and a KINDRA which I believe is appropriate. We will repeat the CRP today. Orthopedically, the patient appears stable at this time. Admission and Anticipated Discharge Date Admission Date: December 14, 2024 Subjective Postoperative day #2 status post irrigation debridement right hand. Patient notes his hand feels today noted that yesterday. Denies any issues overnight. Review of Systems Review of Systems: All systems reviewed & are unremarkable except as noted in HPI & below Physical Exam Physical Exam: Hand dressing changed today. No erythema about the hand. Wound edges well- approximated. Stitches without signs of concern. Results & Data Vital Signs (Past 12 Hours) Vital Signs Temp Pulse Pulse Resp BP Pulse Ox O2 Del Method 12/16/24 07:25 69 12/16/24 03:47 36.8 C 79 18 103/66 97 Room Air 12/15/24 22:58 36.8 C 87 18 112/72 97 Room Air 12/15/24 22:07 83 Laboratory Results Most recent white blood cell count 9.24 Most recent ESR 35 Most recent CRP 9.54
--- NOTE | 2024-12-16 10:11 | Pharmacy Report ---
Pharmacy PK ABX Note - Date of Service December 16, 2024 - Assessment and Plan Assessment 12/16: Day # 3 vancomycin for S. aureus bacteremia and right hand tenosynovitis/cellulitis. S/p I&D of abscess. ID consulted. 12/14 blood cultures (+) MSSA in 3/4. BCID 2 (+) MRSA. Intra op hand culture (+) MSSA. Renal function stable. Vancomycin random level this AM, 13.6mcg/mL (~8h level). 12/15: 34 year old M who presented with concerns of worsening erythema, pain and swelling of R hand. 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 Blood culture and wound culture pending. Empiric vancomycin ordered for treatment of R hand purulent cellulitis, concern for abscess. Plan Vancomycin * Current regimen: vancomycin 1500mg IV q12h * Random level 13.6mcg/mL predicted to achieve ssAUC 483mg/L.hr- therapeutic. * Continue vancomycin 1500mg IV q12h * Repeat level in ~ 48h or sooner if clinically indicated if vancomycin continued. Pharmacy will continue to follow and will adjust dose/frequency as necessary. Thank you. Pharmacy has transitioned to AUC monitoring for vancomycin. AUC/KAREN is the preferred PK/PD target and is associated with decreased risk of nephrotoxicity compared to traditional trough targets.
--- NOTE | 2024-12-16 10:30 | Hospitalist Progress Note ---
Date of Service December 16, 2024 Assessment & Plan (1) Cellulitis of right hand: (2) Abscess of hand, right: (3) Systemic inflammatory response syndrome (SIRS): (4) Hypertriglyceridemia: Plan 34-year-old male who presented with 9 days of a worsening right hand infection and he was subsequently taken for I&D with Ortho, found to have right hand Staph aureus abscess with tenosynovitis complicated by bacteremia. PCR results were positive for MRSA; subsequent culture results were consistent with MSSA. MRSA bacteremia Blood culture 12/14/2024 was PCR positive for MRSA MECa/MREJ gene Blood cultures and right hand surgical culture are positive for MSSA. BC surveillance 12/15/2024 pending, no growth at 24 hours TTE evidence of endocarditis. This does not rule out endocarditis. ID consulted 12/16, reviewed case by phone. Reviewed discrepant culture versus PCR results. Recommend treating with Vanco or s daptomycin given PCR results. Daptomycin daily therapy for a total 4-week course given tenosynovitis, bacteremia, and infection of dominant hand is reasonable. Okay to defer KINDRA at this time given clear alternative source of infection was admitted with source control and negative surveillance cultures to date; however if surveillance cultures are positive then he will need a KINDRA for definitive evaluation of endocarditis. Dispo plan: Follow surveillance cultures for another 24 hours into 12/17. If these remain negative then place ultrasound-guided peripheral IV 12/17 and transition to daptomycin 8 mg/kg (520 mg) once daily with infusions either at [facility] or home health starting 12/18 to complete a total 4 weeks treatment. Hold statin throughout course of daptomycin treatment. Weekly CBC/BMP/CK. If CK rises or has intolerance/myalgias to daptomycin can either transition to vancomycin therapy instead if he has not yet been treated for at least 14 days, or if he has completed least 14 days of therapy at that time complete treatment course with oral linezolid Right hand purulent tenosynovitis/cellulitis - Surgical cx +MSSA, BC+ for MSSA but PCR+ for MRSA. Surveillance cx pending, ng at 24 hours. 12/14/2024 s/p I&D of right hand abscess, right middle finger flexor tenosynovitis, right ring finger flexor tenosynovitis Continue vancomycin, transition to daptomycin on discharge Sinus tachycardia improved. Orthopedics following Hypertriglyceridemia Patient on atorvastatin RNP. Hold while on daptomycin. DVT prophylaxis: Lovenox Diet: Regular CODE STATUS: Full code Admission and Anticipated Discharge Date Admission Date: December 14, 2024 Subjective Seen at the bedside. Continues to feel well today. No fevers chills or sweats. No pain at rest in the hand. He is appreciative of care, would like to know about the next steps for his long-term plan for antibiotics. No other concerns. No numbness/tingling in the fingertips. No chest pain or chest pressure. No shortness of breath Physical Exam Physical Exam: General: A&Ox3. NAD. Cooperative. HEENT: Atraumatic, normocephalic. Hearing grossly intact. Vision grossly intact. Pulm: CTAB A&P. -wheezes, -rales, -rhonchi. Symmetrical chest rise. No increase in work of breathing. No respiratory distress. Cardiac: Regular rate and rhythm, -mrg. Radial pulses intact and symmetrical. Extremities: Right hand in postop dressing. Cap refill in fingertips is brisk, no numbness/tingling. Results & Data Results & Data Vital Signs (Past 12 Hours) Vital Signs Temp Pulse Pulse Resp BP Pulse Ox O2 Del Method 12/16/24 08:30 36.8 C 70 16 100/66 98 Room Air 12/16/24 07:25 69 12/16/24 03:47 36.8 C 79 18 103/66 97 Room Air 12/15/24 22:58 36.8 C 87 18 112/72 97 Room Air PG Care Time/CCT Total # of Minutes Spent Total Time Spent with Patient: Total time spent is greater than 50% in coordination of care (as documented) at patient's floor/unit and/or counseling patient: Coding Level of Care Code 02096 SUB INP/OBS CARE 3/50MIN Diagnoses Cellulitis of right hand L03.113 Abscess of hand, right L02.511 Systemic inflammatory response syndrome (SIRS) R65.10 Hypertriglyceridemia E78.1
--- NOTE | 2024-12-17 07:16 | Hospitalist Progress Note ---
Date of Service December 17, 2024 Assessment & Plan (1) MSSA (methicillin susceptible Staphylococcus aureus) infection: (2) Infectious tenosynovitis of right wrist extensor: Plan In summary this is a 34-year-old male who presented with 9 days of right hand pain and eventual purulent discharge found to have infectious tenosynovitis with wound culture results yielding MSSA. The patient's infection was discussed by the patient's previous hospitalist; in summary given the patient's cultures have remained negative through 12/17, the patient will have a PICC placed as opposed to previously documented ultrasound- guided peripheral IV due to the duration of antibiotics. His course will maintain through 01/14 pending any complications or changes. Case management is now aware of the patient, and they will assist with scheduling [facility] transfusions. The patient's statin will be held throughout the course of his daptomycin. Admission and Anticipated Discharge Date Admission Date: December 14, 2024 Subjective Mr. Mao is a 34-year-old male who remains admitted for right wrist infectious tenosynovitis with MSSA. No acute overnight events; without specific complaints this morning. Review of Systems Review of Systems: Review of constitutional, cardiovascular, pulmonary, musculoskeletal systems was unremarkable from prior days. Physical Exam Physical Exam: General: Adult male in no acute distress Vital Signs: Reviewed Pulmonary: Symmetric chest wall rise without restriction; clear to auscultation bilaterally Cardiovascular: Regular rate and rhythm without murmurs, rubs, or gallops; right radial pulse 2+; capillary refill is brisk in the right upper extremity Results & Data Results & Data Vital Signs (Past 12 Hours) Vital Signs Temp Pulse Pulse Resp BP BP Pulse Ox 12/17/24 07:13 72 12/17/24 03:14 36.7 C 70 16 107/69 97 12/16/24 23:23 36.7 C 70 18 113/76 99 12/16/24 21:40 69 12/16/24 19:45 36.8 C 86 18 110/73 95 O2 Del Method 12/17/24 07:13 12/17/24 03:14 Room Air 12/16/24 23:23 Room Air 12/16/24 21:40 12/16/24 19:45 Room Air PG Care Time/CCT Total # of Minutes Spent Total Time Spent with Patient: Total time spent is greater than 50% in coordination of care (as documented) at patient's floor/unit and/or counseling patient: Coding Level of Care Code 06549 SUB INP/OBS CARE MIN Diagnoses MSSA (methicillin susceptible Staphylococcus aureus) infection A49.01 Infectious tenosynovitis of right wrist extensor M65.131
[2024-12-17 07:18] LABS: Hematocrit (blood only) 45.2 % (42.0-52.0); Hemoglobin 14.6 g/dl (14.0-18.0); Immature Granulocytes # (auto) 0.12 K/uL (0.01-0.20); Immature Granulocytes % (auto) 1.4 %; Mean Corpuscular Hemoglobin 22.9 pg (25.0-34.0); Mean Corpuscular Volume 70.8 fL (80.0-100.0); Platelet Count 207 K/uL (130-400); RDW Standard Deviation 35.0 fL (36.4-46.3); Red Blood Count 6.38 M/uL (4.70-6.10); White Blood Count 8.43 K/ul (4.8-10.8)
[2024-12-17 07:39] LABS: Anion Gap 5.0 (3-11); Blood Urea Nitrogen 12.0 mg/dl (6-23); Calcium 9.5 mg/dl (8.6-10.3); Carbon Dioxide 30.0 mmol/L (21-32); Chloride 104.0 mmol/L (98-107); Creatinine Clr Calc Pharmacy 100.3 ml/min; Glucose 101.0 mg/dl (70-99(Fasting)); Potassium 3.9 mmol/L (3.5-5.1); Sodium 139.0 mmol/L (136-145)
--- NOTE | 2024-12-17 08:58 | Orthopedic Progress Note ---
Date of Service December 17, 2024 Assessment & Plan (1) Abscess of hand, right: (2) Cellulitis of right hand: (3) Systemic inflammatory response syndrome (SIRS): Plan Postoperative day 3 status post irrigation debridement right hand. CRP 2 days ago showed increase from admission, however this trended down yesterday. An additional value is still pending for today's labs. Per medicine, disposition planning is to follow surveillance cultures into today. If these remain negative then place ultrasound-guided peripheral IV 12/17 and transition to daptomycin 8 mg/kg (520 mg) once daily with infusions either at [facility] or home health starting 12/18 to complete a total 4 weeks treatment. Hold statin throughout course of daptomycin treatment. Weekly CBC/BMP/CK. If CK rises or has intolerance/myalgias to daptomycin can either transition to vancomycin therapy instead if he has not yet been treated for at least 14 days, or if he has completed least 14 days of therapy at that time complete treatment course with oral linezolid. infectious disease was consulted and reviewed the case by phone. I will plan to see him in the office next week following discharge for wound check. Admission and Anticipated Discharge Date Admission Date: December 14, 2024 Subjective Seen at the bedside. Continues to feel well today. No fevers chills or sweats. No pain at rest in the hand. No numbness/tingling in the fingertips. No chest pain or chest pressure. No shortness of breath Review of Systems Review of Systems: All systems reviewed & are unremarkable except as noted in HPI & below Physical Exam Physical Exam: Hand dressing changed yesterday. No erythema about the hand. Wound edges well- approximated. Stitches without signs of concern. Results & Data Vital Signs (Past 12 Hours) Vital Signs Temp Pulse Pulse Resp BP Pulse Ox O2 Del Method 12/17/24 08:23 36.8 C 66 18 106/68 98 Room Air 12/17/24 07:13 72 12/17/24 03:14 36.7 C 70 16 107/69 97 Room Air 12/16/24 23:23 36.7 C 70 18 113/76 99 Room Air 12/16/24 21:40 69 Laboratory Results Most recent WBC 8.4 Most recent CRP drawn yesterday 4 down from 9 the day before (new labs pending today)
[2024-12-17] MEDS: DAPTOmycin 500 MG in SYRINGE 0 ML IV SCH (21:34)
[2024-12-18 06:56] LABS: Hematocrit (blood only) 47.2 % (42.0-52.0); Hemoglobin 15.5 g/dl (14.0-18.0); Immature Granulocytes # (auto) 0.23 K/uL (0.01-0.20); Immature Granulocytes % (auto) 2.5 %; Mean Corpuscular Hemoglobin 23.0 pg (25.0-34.0); Mean Corpuscular Volume 70.1 fL (80.0-100.0); Platelet Count 226 K/uL (130-400); RDW Standard Deviation 33.8 fL (36.4-46.3); Red Blood Count 6.73 M/uL (4.70-6.10); White Blood Count 9.23 K/ul (4.8-10.8)
--- NOTE | 2024-12-18 07:04 | Hospitalist Progress Note ---
Date of Service December 18, 2024 Assessment & Plan (1) MSSA (methicillin susceptible Staphylococcus aureus) infection: (2) Infectious tenosynovitis of right wrist extensor: (3) Infectious tenosynovitis: Plan In summary this is a 34-year-old male who presented with 9 days of right hand pain and eventual purulent discharge found to have infectious tenosynovitis of the right wrist flexor tendons with wound culture results yielding MSSA. In summary given the patient's cultures have remained negative through 12/17, PICC placed as opposed to previously documented ultrasound-guided peripheral IV due to the duration of antibiotics. His course will maintain through 01/14 pending any complications or changes. Case management is assisting with coordination of home antibiotic infusions. The patient's statin will be held throughout the course of his daptomycin. Admission and Anticipated Discharge Date Admission Date: December 14, 2024 Anticipated date of discharge: 12/18/24 Subjective Mr. Mao is a 34-year-old male who remains admitted for right wrist infectious tenosynovitis with MSSA. No acute overnight events; without specific complaints this morning. Review of Systems Review of Systems: Review of constitutional, cardiovascular, pulmonary, musculoskeletal systems was unremarkable from prior days. Physical Exam Physical Exam: General: Adult male in no acute distress Vital Signs: Reviewed Pulmonary: Symmetric chest wall rise without restriction; clear to auscultation bilaterally Cardiovascular: Regular rate and rhythm without murmurs, rubs, or gallops; right radial pulse 2+; capillary refill is brisk in the right upper extremity Results & Data Results & Data Vital Signs (Past 12 Hours) Vital Signs Temp Pulse Pulse Resp BP Pulse Ox O2 Del Method 12/18/24 04:08 36.7 C 89 14 107/71 98 Room Air 12/17/24 23:17 36.7 C 67 14 111/72 98 Room Air 12/17/24 21:50 81 12/17/24 19:15 36.3 C L 88 14 103/67 96 Room Air PG Care Time/CCT Total # of Minutes Spent Total Time Spent with Patient: Total time spent is greater than 50% in coordination of care (as documented) at patient's floor/unit and/or counseling patient: Coding Level of Care Code 20736 SUB INP/OBS CARE 2/35MIN Diagnoses MSSA (methicillin susceptible Staphylococcus aureus) infection A49.01 Infectious tenosynovitis of right wrist extensor M65.131 Infectious tenosynovitis M65.10
[2024-12-18 07:16] LABS: Anion Gap 8.0 (3-11); Blood Urea Nitrogen 13.0 mg/dl (6-23); Calcium 9.7 mg/dl (8.6-10.3); Carbon Dioxide 25.0 mmol/L (21-32); Chloride 104.0 mmol/L (98-107); Creatinine Clr Calc Pharmacy 132.7 ml/min; Glucose 100.0 mg/dl (70-99(Fasting)); Potassium 4.0 mmol/L (3.5-5.1); Sodium 137.0 mmol/L (136-145)
--- NOTE | 2024-12-18 08:01 | Orthopedic Progress Note ---
Date of Service December 18, 2024 Assessment & Plan (1) Abscess of hand, right: (2) Cellulitis of right hand: (3) Systemic inflammatory response syndrome (SIRS): Plan Postoperative day 4 status post irrigation debridement right hand. CRP has continued to trend down since I+D. patient had PICC placed yesterday. per ID plan for 4 weeks daptomycin. I will plan to see him in the office in about 1 week for wound check. Admission and Anticipated Discharge Date Admission Date: December 14, 2024 Subjective 34-year-old male who remains admitted for right hand infection. Patient had PICC line placed yesterday. Likely to be discharged today. feels well. no acute complaints. Review of Systems Review of Systems: All systems reviewed & are unremarkable except as noted in HPI & below Physical Exam Physical Exam: Hand dressing c/d/i. SILT throughout. brisk cap refill. Results & Data Vital Signs (Past 12 Hours) Vital Signs Temp Pulse Pulse Resp BP Pulse Ox O2 Del Method 12/18/24 07:42 36.7 C 78 20 108/69 97 Room Air 12/18/24 07:19 85 12/18/24 04:08 36.7 C 89 14 107/71 98 Room Air 12/17/24 23:17 36.7 C 67 14 111/72 98 Room Air 12/17/24 21:50 81 Laboratory Results CRP yesterday continued to trend down
--- NOTE | 2024-12-18 11:28 | Infectious Disease Consult ---
Date of Consultation December 18, 2024 Assessment & Plan (1) MSSA (methicillin susceptible Staphylococcus aureus) infection: (2) Infectious tenosynovitis: (3) Abscess of hand, right: (4) Cellulitis of right hand: Plan Problems: #Staph aureus bacteremia: methicillin resistance detected on biofire, but culture grew MSSA #R hand abscess, infectious tenosynovitis s/p I&D 12/14 Micro: 12/15 BCx x2: NGTD 12/14 R hand OR cx: MSSA 12/14 BCx x2: MSSA in 3/4 bottles (Biofire detected methicillin resistance) 12/14 R hand drainage cx: Staph aureus Abx: Dapto 12/17 - present Vanc 12/14 - 12/17 Cefazolin 12/16 - 12/17 Zosyn 12/14 - 12/15 Ceftriaxone 12/13 34 yo M with hypertriglyceridemia who presented on 12/14 with 9 days of worsening R hand swelling, erythema, pain, found to have Staph aureus bacteremia 2/2 R hand abscess and infectious tenosynovitis. No known trauma to the R hand. In the ED, was noted to have R hand erythema and edema, with palpable abscess between on palmar aspect between base of 2nd, 3rd, and 4th fingers. On presentation, T 37.6, HR 118. Labs with WBC 12.46, CRP 2.45. R hand XR with diffuse soft tissue swelling/edema of R hand and fingers, no radiographic evidence of osteomyelitis or acute osseous abnormality. In the ED, the abscess was incised and a large amount of purulent material released and sent for culture which grew Staph aureus. Ortho was consulted. CT R hand with contrast showed no acute osseous abnormality, ill-defined peripherally enhancing 3.1 x 0.9 x 1.4 collection in palmar tissues of hand at the level of the bases of the proximal phalanges involving the second through fourth digits. R hand MRI without contrast showed no acute osseous abnormality, subcutaneous edema most pronounced dorsally facing the fourth extensor compartment tendons which may represent an associated tenosynovitis, ill-defined fluid collection along palmar hand. Pt was taken to the OR on 12/14 for I&D. Noted evolving flexor tenosynovitis of R third and fourth digits. Admission blood cultures grew Staph aureus in 3/4 bottles. Biofire detected MRSA resistance gene, but culture grew MSSA. Wound culture from the ED and OR also grew MSSA. Repeat blood cultures from 12/15 are NGTD. TTE on 12/15 shows no veg etations. Case was discussed with ID over the weekend who, given the discordance between PCR and culture results, recommended daptomycin x 4 week course. Discussion: Pt with Staph aureus bacteremia secondary to R hand infection. Blood cultures cleared quickly and TTE negative for vegetations. Interesting that Biofire detected methicillin resistance, although culture grew MSSA. Raises concern for low level expression of methicillin resistance? Recommendations: - Continue daptomycin 500 mg IV q24h (~8 mg/kg) through 01/11/25 to complete a total 4 week course of antibiotics - Added on a baseline CK to AM labs - Ok to hold home atorvastatin while on daptomycin. - See below antibiotic discharge summary for monitoring labs, fax number - We will arrange for follow-up in our telemedicine OPAT clinic Will sign off. Infectious Diseases OPAT Antibiotic Discharge Plan: Infectious Disease Diagnosis: Staph aureus bacteremia and R hand abscess/infectious tenosynovitis IV antibiotics (dose, route, duration): daptomycin 500 mg IV q24h End-Date: 01/11/25 Additional oral antibiotics or antifungals while on IV therapy (drug, dose, duration): No Labs: Weekly CBC with diff, CMP, CK. Please fax lab results to [phone] PICC line: Care per protocol, remove PICC line at end of therapy: yes Repeat imaging recommendations (type of image, contrast, time frame): no Oral suppression after cessation of IV antibiotics (drug, dose, duration): no ID follow-up in: 3 weeks Consultation Information This patient recommendation is based on a telemedicine consult request which was completed asynchronously through chart review and information provided by the primary physician. The patient was not seen or examined today. The evaluation is consultative in nature and all patient care and treatment decisions can either be accepted or rejected by the patient's primary hospital-based treating physician using their own independent medical judgment for their patient. [employer] contact information: Please call [facility] [phone]. (Phone Number For Physician Use Only) An e-consult was performed as the video cart is not functioning. Time Spent Reviewing Chart: 31+ minutes History of Present Illness Reason for Consultation: MRSA bacteremia Attending Physician: Keyon Rivero DO History of Present Illness 34 yo M with hypertriglyceridemia who presented on 12/14 with 9 days of worsening R hand swelling, erythema, pain. Initially started out as a red spot, but erythema began to spread, along with increased pain and swelling. Also noted fever. 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 In the ED, was noted to have R hand erythema and edema, with palpable abscess between on palmar aspect between base of 2nd, 3rd, and 4th fingers. On presentation, T 37.6, HR 118. Labs with WBC 12.46, CRP 2.45. R hand XR with diffuse soft tissue swelling/edema of R hand and fingers, no radiographic evidence of osteomyelitis or acute osseous abnormality. In the ED, the abscess was incised and a large amount of purulent material released and sent for culture. Was given vanc, ceftriaxone in the ED. Ceftriaxone broadened to Zosyn on 12/14. Ortho was consulted. CT R hand with contrast showed no acute osseous abnormality, ill-defined peripherally enhancing 3.1 x 0.9 x 1.4 collection in palmar tissues of hand at the level of the bases of the proximal phalanges involving the second through fourth digits. R hand MRI without contrast showed no acute osseous abnormality, subcutaneous edema most pronounced dorsally facing the fourth extensor compartment tendons which may represent an associated tenosynovitis, ill-defined fluid collection along palmar hand. Pt was taken to the OR on 12/14 for I&D. Noted evolving flexor tenosynovitis of R third and fourth digits. Admission blood cultures grew Staph aureus in 3/4 bottles. Biofire detected MRSA resistance gene, but culture grew MSSA. Wound culture from the ED and OR also grew MSSA. Repeat blood cultures from 12/15 are NGTD. TTE on 12/15 shows no vegetations. Pt currently on daptomycin. Allergies Allergy/AdvReac Type Severity Reaction Status Date / Time No Known Allergies Allergy Verified 12/14/24 04:58 Home Medications Medication Instructions Recorded Confirmed Type atorvastatin 10 mg tablet 10 mg PO 1XD 12/14/24 12/14/24 History Patient History Social History Smoking Status: Never smoker Hx Alcohol Use: Yes Hx Substance Use: No Preferred Language: Telugu Communication Ability: Effective Research And Evaluation Manager Required: No Beliefs That Will Affect Care: None Current Living Situation: Family Feels Safe at Home: Yes Assistive Devices: Glasses Results & Data Vital Signs (Past 12 Hours) Vital Signs Temp Pulse Pulse Resp BP Pulse Ox O2 Del Method 12/18/24 07:42 36.7 C 78 20 108/69 97 Room Air 12/18/24 07:19 85 12/18/24 04:08 36.7 C 89 14 107/71 98 Room Air Laboratory Results Short CBC 12/18/24 Range/Units 05:33 WBC 9.23 (4.8-10.8) K/ul Hgb 15.5 (14.0-18.0) g/dl Hct 47.2 (42.0-52.0) % Plt Count 226 (130-400) K/uL BMP 12/18/24 05:33 Sodium 137 Potassium 4.0 Chloride 104 Carbon Dioxide 25 BUN 13 Creatinine 0.73 Glucose 100 H Calcium 9.7 Medications Administered Current Inpatient Medications Acetaminophen (Acetaminophen 500 Mg Tab) 1,000 mg PO Q8H PRN PRN Reason: Pain or Fever Stop: 01/13/25 04:53 Last Admin: 12/17/24 17:27 Dose: 1,000 mg Docusate Sodium (Docusate Sodium 100 Mg Cap) 100 mg PO BID PRN PRN Reason: Constipation Stop: 01/14/25 22:29 Last Admin: 12/15/24 22:39 Dose: 100 mg Heparin Sodium (Beef Lung) (Heparin 10 Unit/Ml 5 Ml Flush) 5 ml FLUSH PRN PRN PRN Reason: Flush Stop: 01/16/25 17:41 Daptomycin 500 mg/ Syringe 10 mls @ 4.5 mls/min IV Q24H [facility]; Protocol Stop: 01/28/25 21:59 Last Admin: 12/17/24 21:34 Dose: 4.5 mls/min Melatonin (Melatonin 3 Mg Tab) 3 mg PO HS PRN PRN Reason: Sleep Stop: 01/13/25 05:07 Last Admin: 12/17/24 21:34 Dose: 3 mg Ondansetron HCl (Ondansetron Inj 2 Mg/Ml 2 Ml Vial) 4 mg IV Q6H PRN PRN Reason: Nausea Stop: 01/13/25 04:53
[2024-12-18 12:30] LABS: Creatine Kinase 33.0 U/L (30-223)
--- NOTE | 2024-12-19 09:59 | Discharge Summary ---
Discharge Summary Date of Service December 19, 2024 Principal Dx & Hospital Course #1 = Principal Diagnosis (1) MSSA (methicillin susceptible Staphylococcus aureus) infection: (2) Infectious tenosynovitis of right wrist extensor: (3) Infectious tenosynovitis: Plan Orly Mao is a 34 year old male who presented with 9 days of right hand pain and eventual purulent discharge found to have infectious tenosynovitis of the right wrist flexor tendons with wound and blood culture results yielding MSSA. He was initially treated with intravenous vancomycin switched to daptomycin for ease of ongoing therapy as outpatient. MRSA coverage was recommended by infectious disease despite MSSA growing in cultures due to PCR testing showing methicillin resistance therefore suspect he had low level resistance. He cleared his blood cultures on first repeat and PICC line was inserted. TTE did not show any vegetation and given speed of clearance KINDRA not warranted. He will remain on daptomycin through 01/11 per ID recommendations. Initially he will be taught to do the daptomycin himself at home then home health will come in for dressing changes and weekly labs. He is non weight bearing with his right hand. Notes For Next Care Provider Follow up weekly labs (CBC, BMP, CK) - these should also be sent to infectious disease Infectious disease to arrange follow up in telemedicine OPAT clinic Follow up orthopedics Medication Changes From Visit Daptomycin 500mg IV daily Hold atorvastatin while on daptomycin, can restart after this finishes Admission HPI Per Admitting Provider Patient is a 34 yo M w/ a PMHx of hypertriglyceridemia, presenting tonight w/ 9 day Hx of r. hand pain, that just started out as a red spot, but from this Tuesday the area of erythema started to spread, along w/ increased pain and swelling. Patient has felt feverish since yesterday morning, took his temp at midnight for the first time tonight and noted a temp of 101deg F. Patient had gone [facility] [place] a half days ago in the afternoon, but was only treated for the pain and instructed to take NSAIDs to control the pain. 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 Is unsure how the injury started. Patient has only taken ibuprofen, Tylenol, up until now for the pain. Discharge Exam Constitutional WD/WN, vitals as above Respiratory normal respiratory effort, lungs clear to auscultation Cardiovascular RRR, no murmur, no edema Skin Right hand dressed, not removed, good cap refill distally Discharge Plan Discharge Items Patient Disposition: Home - Self-Care Reason For Visit: CELLULITIS OF R HAND Discharge Diagnosis: MSSA (methicillin sensitive staph aureus) tenosynovitis/bacteremia Condition on Discharge: Good Activity: Per Instructions section Non-emergency contact: Primary Care Provider and Specialist Call non-emergency contact if: you have any medication questions, your symptoms worsen, your temperature is above 101, your wound has increased redness and your wound has increased drainage Follow-up/Referrals: Fred Martin DO [Primary Care Provider] - 12/20/24 2:00 pm (Hospital follow up appointment. Please schedule establish care appointment at this appointment.) Juan Ochoa DO [Surgeon] - (follow up tenosynovitis) Diet: Regular Ambulatory Orders: Complete Blood Count no Diff (Q7D) Timeframe: 20241224 Location: Determined by Patient Ordered By: Keyon Rivero Complete Blood Count no Diff (Q7D) Timeframe: 20241231 Location: Determined by Patient Ordered By: Keyon Rivero Complete Blood Count no Diff (Q7D) Timeframe: 20250107 Location: Determined by Patient Ordered By: Keyon Rivero Complete Blood Count no Diff (Q7D) Timeframe: 20250114 Location: Determined by Patient Ordered By: Keyon Rivero Complete Blood Count no Diff (Q7D) Timeframe: 20250121 Location: Determined by Patient Ordered By: Keyon Rivero Creatine Kinase (Q7D) Timeframe: 20241224 Location: Determined by Patient Ordered By: Keyon Rivero Creatine Kinase (Q7D) Timeframe: 20241231 Location: Determined by Patient Ordered By: Keyon Rivero Creatine Kinase (Q7D) Timeframe: 20250107 Location: Determined by Patient Ordered By: Keyon Rivero Creatine Kinase (Q7D) Timeframe: 20250114 Location: Determined by Patient Ordered By: Keyon Rivero Creatine Kinase (Q7D) Timeframe: 20250121 Location: Determined by Patient Ordered By: Keyon Rivero Renal Function Panel (Q7D) Timeframe: 20241224 Location: Determined by Patient Ordered By: Keyon Rivero Renal Function Panel (Q7D) Timeframe: 20241231 Location: Determined by Patient Ordered By: Keyon Rivero Renal Function Panel (Q7D) Timeframe: 20250107 Location: Determined by Patient Ordered By: Keyon Rivero Renal Function Panel (Q7D) Timeframe: 20250114 Location: Determined by Patient Ordered By: Keyon Rivero Renal Function Panel (Q7D) Timeframe: 20250121 Location: Determined by Patient Ordered By: Keyon Rivero Addtl Attending Provider Instructions: You were admitted to [facility] due to right hand infectious tenosynovitis found to be MSSA bacteria; there was concern of PCR positive MRSA, and in order to ultimately treat you for this infection we will cover for MRSA. You will continue on daily daptomycin 8 mg/kg through 01/14 for a total 4-week course. During this time do not take your prescribed atorvastatin, due to its interaction with daptomycin. Please keep close follow-up as scheduled with orthopedic surgery, who saw you during your hospitalization. If you develop fevers, chills, increasing pain or drainage from the wound site, please have a low threshold to return to the emergency room or contact your surgeon for recommendations. We will also be following weekly lab work including a CBC, renal function panel, and CPK. Please have these completed on a regular basis. There is no need to fast for these labs. Pending Studies at Discharge: No Stand-Alone Forms: My [facility] Medications and DC Order Prescriptions: New daptomycin 500 mg recon soln 500 mg IV DAILY 24 Days Rx Instructions: administer over 30 mins Held atorvastatin 10 mg tablet 10 mg PO 1XD Hold Instructions: Resume on 01/15/25. Discharge Orders: Discharge Order (Routine); Ordered 12/19/24 Ordered By: Bobo Ryan/Other Patient Handouts: Caring for Your PICC Dc, Flushing Your PICC Line at Home Admission Data Admit Date/Time: 12/14/24 04:55 Attending Provider: Bobo Cifuentes Admit Provider: Austin Loyola Primary Care Provider: Fred Martin Other Providers: Landry Romeo; Juan Ochoa; Ladonna Aceves; Mary Sparrow; Marcela Villalpando; Bre Palomares; Debra Hinojosa; Nuha Lowe; [facility] Other Interventions: Discharge Summary Assessment (RN) Last Done: 12/19/24 11:19 Hospital Stay Data Consultations 12/14/24 04:24 ED Decision to Admit Stat 12/14/24 10:14 Consult Orthopedic Surgery Routine 12/15/24 07:51 Consult Infectious Diseases Routine Procedures Performed Operation Date: 12/14/24 08:40 Actual Procedures p Irrigation and debridement right hand abscess, irrigation and debridement right middle finger flexor tenosynovitis, irrigation debridement right ring finger flexor tenosynovitis(Right) - Juan Ochoa, Diagnostic Imagining Performed 12/14/24 10:12 CT hand RT w con Stat 12/14/24 11:48 MRI Hand [MR hand RT wo con] Stat Pending Results Patient Have Any Pending Studies at Discharge: No Discharge Instructions Given to Patient (Per Discharging Provider) You were admitted to [facility] due to right hand infectious tenosynovitis found to be MSSA bacteria; there was concern of PCR positive MRSA, and in order to ultimately treat you for this infection we will cover for MRSA. You will continue on daily daptomycin 8 mg/kg through 01/14 for a total 4-week course. During this time do not take your prescribed atorvastatin, due to its interaction with daptomycin. Please keep close follow-up as scheduled with orthopedic surgery, who saw you during your hospitalization. If you develop fevers, chills, increasing pain or drainage from the wound site, please have a low threshold to return to the emergency room or contact your surgeon for recommendations. We will also be following weekly lab work including a CBC, renal function panel, and CPK. Please have these completed on a regular basis. There is no need to fast for these labs. Total Time Total Time Spent Total Time Spent (In Minutes): 50 Coding Level of Care Code 28492 INP/OBS DISCH >30 MIN Diagnoses MSSA (methicillin susceptible Staphylococcus aureus) infection A49.01 Infectious tenosynovitis of right wrist extensor M65.131 Infectious tenosynovitis M65.10
[2024-12-19 15:39] VITALS: BP 128/87; PULSE 88; RESP 18; TEMP 97.9; O2SAT 96
[2024-12-19] MEDS: DAPTOmycin 500 MG in SYRINGE 0 ML IV SCH (18:13)
--- NOTE | 2024-12-20 12:42 | Coding Query ---
DEBRIDEMENT DOCUMENTATION To promote full compliance with coding requirements relating to patient care, physician participation is requested in all cases of statistical reporting analyst uncertainty. Please assist us with the question(s) below: Please place an X in the parenthesis (x). If other, please document the finding: Type of Debridement: (x ) Excisional Debridement- Cutting away necrotic, devitalized tissue or slough to the level of viable tissue using a sharp instrument (i.e. scalpel, scissors, etc.) ( ) Non Excisional Debridement- The removal of necrotic, devitalized tissue or slough by means of scraping, mechanical brushing, flushing, or washing (i.e. irrigation,whirlpool);minor removal of loose fragments. ( ) Other (please specify): Instrument Used: ( x) Scissors ( x) Scalpel ( ) Curette ( ) Other (please specify): Depth of Debridement: ( ) Skin ( ) Skin and Subcutaneous Tissue (x ) Skin, Subcutaneous Tissue and Muscle ( ) Skin, Subcutaneous Tissue, Muscle and Bone ( ) Other (please specify): Please Specify the Size of Debridement in cm2: 1cm2 Thank you LUIS Bynum [facility]ITALYesika
== END 2024-12-19 19:46 | disposition home health service (06) | DRG 513 ==
LOC: ED 03:26 → SUATTDRO 04:55 → EDINP 04:55 → 2W 16:52